=== PATIENT | female | born 1995 | race Two or more races ===

== ENCOUNTER 2020-04-25 15:54 | Emergency (ER) | payer OTHER ==
[~2020-04-25] VITALS: Ht 162.6 cm; Wt 54.4 kg
[2020-04-25] MEDS ORDERED: ACETAMINOPHEN 500 MG TAB PO ONE (20:30)
[2020-04-25] MEDS ORDERED: IBUPROFEN 800 MG TAB PO ONE (20:30)
[2020-04-25 20:34] VITALS: BP 111/75
== END 2020-04-25 21:33 | disposition home or self-care (01) ==
LOC: ER 15:59
DX: S02.2XXA Fracture of nasal bones, initial encounter for closed fracture (principal); S02.40DA Maxillary fracture, left side, initial encounter for closed fracture; V49.9XXA Car occupant (driver) (passenger) injured in unspecified traffic accident, initial encounter; Y93.89 Activity, other specified; Y92.89 Other specified places as the place of occurrence of the external cause; Y99.8 Other external cause status
CPT/HCPCS: 70486